=== PATIENT | male | born 1960 | race Caucasian/White ===

== ENCOUNTER 2018-01-23 00:34 | Inpatient (IN) | payer MEDICARE, MEDICAID ==
[2018-01-22 14:48] LABS: INR 0.96
--- NOTE | 2018-01-22 20:19 | HISTORY AND PHYSICAL ---
DATE OF ADMISSION: January 23, 2018 IDENTIFICATION/CHIEF COMPLAINT Fabby is a 56-year-old gentleman with the chief complaint of right shoulder pain. HISTORY OF PRESENT ILLNESS Patient has a long-standing history of right shoulder rotator cuff tear arthropathy, progressively painful and debilitating, refractory to conservative care. Surgery is indicated to relieve symptoms after failure of nonoperative measures. PAST MEDICAL HISTORY 1. History of diabetes. 2. Hypercholesterolemia. 3. History of DE. 4. Hypertension, controlled on medication. 5. Sleep apnea. ALLERGIES He has no known drug allergies. CURRENT MEDICATIONS 1. Humalog insulin sliding scale. 2. Metformin 1000 mg p.o. b.i.d. 3. Lactulose 10 mg per day. 4. Gabapentin 300 mg b.i.d. 5. Celebrex 200 mg p.o. q. day. 6. Aspirin baby size, 81 mg p.o. q. day. 7. Simvastatin 40 mg q. day. 8. Protonix 40 mg half tablet q. day. 9. Lisinopril 10 mg p.o. b.i.d. 10. Percocet as needed for pain. 11. Colchicine 0.6 mg p.o. q. day. 12. Furosemide 40 mg p.o. p.r.n. swelling. PAST SURGICAL HISTORY 1. Bilateral knee replacement. 2. Heart catheterization. 3. Knee scope. 4. Back surgery. 5. Cholecystectomy. FAMILY HISTORY Notable for mother with DE. Father with coronary artery disease. SOCIAL HISTORY Negative for tobacco and alcohol use. REVIEW OF SYSTEMS Negative. PHYSICAL EXAMINATION GENERAL: Healthy male. He is well developed. He is well nourished. He appears stated age. HEENT: Normocephalic, atraumatic. NECK: Supple. LUNGS: Clear. HEART: Regular. ABDOMEN: Soft. ORTHOPEDIC: Right shoulder is weak in forward elevation, abduction, and external rotation. He has crepitus throughout range of motion. He is stiff at end range. Gross stability is good. Neurovascular function intact. Skin is in good condition. ASSESSMENT Right shoulder rotator cuff tear arthropathy. PLAN I discussed the options with Fabby including ongoing conservative care management which is safe and reasonable but high likelihood of persistent symptoms versus the option of arthroplasty. Reverse total shoulder arthroplasty will be performed per patient request. Nature of the procedure, risks, benefits, and the anticipated rehab course were reviewed. Risks of the procedure include, but are not limited to , major medical or anesthetic complications, infection, neurovascular injury, blood transfusion, stiffness, scarring, fracture, tendon rupture, instability, implant loosening, migration, or failure, persisting or recurrent pain, need for additional surgery, and other unforeseen. He understands and wishes to proceed. The signed permit is placed in the chart. No guarantees are given or implied. AMIE
[~2018-01-23] VITALS: Ht 162.6 cm; Wt 123.8 kg
[2018-01-23] VITALS (13 sets, daily range): BP systolic 110–154; BP diastolic 53–79
[~2018-01-23 00:34] MED LIST: ALBU2.5V36 INH; ALBU2SYR19 IH; AMOX500T10 PO; ASPI-1471 PO; ASPI-757 PO; ASPI-870 PO; ASPI81TA94 PO; CELE-1 PO; COLC0.6T2 PO; DIA5 PO; FEN145 PO; FURO-47 PO; GABA-549 PO; HYDR-389 PO; HYDR-654 PO; INSU100V24 SQ; INSU300I SUBQ; LACT10SO82 PO; LACTULOSE PO; LEVI SUBQ; LISI-362 PO; METF-452 PO; ONDA4TAB9 PO; ONDA4TAB97 PO; ONDA8TAB97 PO; OXYC-374 PO; OXYC-823 PO; PANT40TA65 PO; PER PO; PIOG15TA14 PO; PIOG45TA22 PO; POTA20TA94 PO; SIMV-54 PO
[2018-01-23] MEDS ORDERED: FAMOTIDINE 20 MG TAB PO ONE (06:00)
[2018-01-23] MEDS ORDERED: CELECOXIB 200 MG CAP PO ONE (06:15)
[2018-01-23] MEDS ORDERED: ceFAZolin(*) 2GM/D5W 50ML 50 ML IVPB ONE (06:15)
[2018-01-23] MEDS ORDERED: ACETAMINOPHEN 500 MG TAB PO ONE (06:15)
[2018-01-23] MEDS ORDERED: PREGABALIN 150 MG CAPSULE PO ONE (06:15)
[2018-01-23] MEDS ORDERED: cloNIDine EPIDUR INJ 100MCG/ML 40 MCG, ROPIVACAINE 0.5% 20 ML VIAL 25 ML, EPINEPHrine H... INJ ONE (06:15)
[2018-01-23] MEDS ORDERED: TRANEXAMIC AC 1000 MG/10ML SDV 1,000 MG in DEXTROSE 5% 50 ML BAG 50 ML IV ONE (06:15)
[2018-01-23] MEDS ORDERED: MIDAZOLAM 2 MG/2 ML VIAL IVP PRN (06:15)
[2018-01-23] MEDS ORDERED: NORMOSOL R SOLN(*) 1000 ML BAG 1,000 ML IV PRN ×2 (06:15→11:00)
[2018-01-23] MEDS ORDERED: LIDOCAINE/SOD BICARB 8.4% SYR ID ONE (06:15)
[2018-01-23] MEDS ORDERED: ROCURONIUM BROM 10 MG/ML 10 ML ONE (06:26)
[2018-01-23] MEDS ORDERED: ONDANSETRON 4 MG/2 ML VIAL ONE ×2 (06:26→07:40)
[2018-01-23] MEDS ORDERED: METOCLOPRAMIDE 10 MG/2 ML SDV ONE ×2 (06:26→07:40)
[2018-01-23] MEDS ORDERED: LIDOCAINE MPF 1% 5 ML VIAL ONE (06:26)
[2018-01-23] MEDS ORDERED: PROPOFOL EMUL(*) 10MG/ML 20 ML 40 ML ONE (06:26)
[2018-01-23] MEDS ORDERED: DEXAMETHASONE SOD 4 MG/ML VIAL ONE ×2 (06:27→07:40)
[2018-01-23] MEDS ORDERED: ROPIVACAINE 0.5% 20 ML VIAL ONE (06:31)
[2018-01-23] MEDS ORDERED: fentaNYL CITR 100 MCG/2 ML AMP ONE ×3 (06:37→10:30)
[2018-01-23] MEDS ORDERED: VANCOMYCIN 1 GM VIAL ONE (07:05)
[2018-01-23] MEDS ORDERED: HYDROGEN PEROXID 3% 473 ML BTL TP ONE (07:06)
[2018-01-23] MEDS ORDERED: TRANEXAMIC AC 1000 MG/10ML SDV ONE (07:40)
[2018-01-23] MEDS ORDERED: PROPOFOL 10 MG/1 ML VIAL ONE (07:40)
[2018-01-23] MEDS ORDERED: ROCURONIUM BROM 10 MG/ML 5 ML ONE (07:40)
[2018-01-23] MEDS ORDERED: SUGAMMADEX SOD 500 MG/5 ML SDV ONE (08:51)
[2018-01-23] MEDS ORDERED: PROMETHAZINE 25 MG/ML 1 ML AMP IVP PRN (11:00)
[2018-01-23] MEDS ORDERED: ACETAMINOPHEN 325 MG TAB PO PRN (11:00)
[2018-01-23] MEDS ORDERED: BISACODYL 10 MG SUPP PR PRN (11:00)
[2018-01-23] MEDS ORDERED: diphenhydrAMINE 50 MG/ML VIAL IVP PRN (11:00)
[2018-01-23] MEDS ORDERED: diphenhydrAMINE 25 MG CAP PO PRN (11:00)
[2018-01-23] MEDS ORDERED: BENZOCAINE/MENTHOL 1 EACH LOZG PO PRN (11:00)
[2018-01-23] MEDS ORDERED: ZOLPIDEM TARTRATE 5 MG TAB PO PRN (11:00)
[2018-01-23] MEDS ORDERED: MAGNESIUM HYDROXIDE* 30ML UDCP PO PRN (11:00)
[2018-01-23] MEDS ORDERED: FLUSH 10 ML SYR IVP PRN (11:00)
[2018-01-23] MEDS ORDERED: oxyCODONE HCL 5 MG CAP PO PRN ×2 (11:05)
[2018-01-23] MEDS: oxyCODONE HCL 5 MG CAP PO PRN ×3 (12:50→20:22)
[2018-01-23] MEDS: ONDANSETRON 4 MG/2 ML VIAL IVP PRN ×2 (12:58→20:20)
--- NOTE | 2018-01-23 13:17 | RADIOLOGY IMAGING REPORT ---
FACILITY: [facility] - [place] PATIENT NAME: Fabby Ortiz : 1960 MR: [id number] V: [id number] EXAM DATE: ORDERING PHYSICIAN: JERAMY BLAS TECHNOLOGIST: Location: [facility] [place] Patient: Fabby Ortiz : 1960 Visit/Account:[id number] Date of Sevice: 01/23/2018 SHOULDER 1 VIEW RIGHT Indication: Postop Comparison: Unavailable Findings: There are postsurgical changes from two-part right TSA. Components appear well seated and appropriat jassi aligned. IMPRESSION: 1. Unremarkable postoperative TSA Report Dictated By: Mika Lou at 01/23/2018 1:12 PM Report E-Signed By: Mika Lou at 01/23/2018 1:12 PM WSN:[email or web address]
[2018-01-23 13:54] LABS: PLATELET COUNT, AUTOMATED 295 K/uL (150-450)
[2018-01-23] MEDS ORDERED: INSULIN HUM LISPRO 100 UN/ML 3 ML VIAL SUBQ PRN (14:25)
--- NOTE | 2018-01-23 15:13 | Hospitalist Consultation ---
History of Present Illness Requesting Physician Dr. Alvarado Reason for Consult Medical Management Chief Complaint s/p right shoulder replacement History of Present Illness He was admitted s/p right shoulder replacement. It is reported the surgery went well and without complication. When patient was admitted to the floor, he came with complaints of his pancreas hurting. He reports a long standing history of chronic pancreatitis. He does have nausea also. History Problems: (1) GAVI on CPAP Status: Chronic (2) GAVI treated with BiPAP Status: Chronic (3) CAD (coronary artery disease) Status: Chronic (4) DMII (diabetes mellitus, type 2) Status: Chronic (5) GERD (gastroesophageal reflux disease) Status: Chronic (6) Hyperlipidemia Status: Chronic (7) Hx of chronic pancreatitis Status: Chronic Home Meds Active Scripts Albuterol Sulfate 0.083% (ALBUTEROL SULFATE 0.083%) 2.5 Mg/3 Ml Vial.neb, 2.5 MG INH Q6H PRN for DYSPNEA, #1 BOX Prov:MIKKI CHAVIRA MD 01/26/16 Insulin Lispro 100 Un/Ml Vial (HUMALOG 100 U/ML VIAL) 100 Unit/1 Ml Vial, 1-6 UNITS SQ ACHS, #1 VIAL Per sliding scale. Prov:MIKKI CHAVIRA MD 01/26/16 Reported Medications Pioglitazone Hcl (ACTOS) 15 Mg Tablet, 15 MG PO BID 01/16/18 Insulin Glargine,Hum.rec.anlog (Rebecca Torres) 300 Unit/1 Ml Insuln.pen, 37 SUBQ BID 01/16/18 Potassium Chloride (POTASSIUM CHLORIDE) 20 Meq Tab.er.prt, 20 MEQ PO QDAY PRN for SWELLING TAKE WITH FUROSEMIDE 01/16/18 Ondansetron (ONDANSETRON ODT) 4 Mg Tab.rapdis, 4 MG PO BID PRN for NAUSEA 01/16/18 Furosemide (FUROSEMIDE) 40 Mg Tablet, 1 TAB PO Q8H PRN for SWELLING, TAB 01/16/18 Aspirin (ASPIRIN) 81 Mg Tab.chew, 81 MG PO QDAY, TAB.CHEW 01/16/18 Lactulose (LACTULOSE) 10 Gm/15 Ml Solution, 10 GM PO DAILY PRN for CONSTIPATION 01/16/18 Oxycodone/Acetaminophen (OXYCODONE/ACETAMINOPHEN 5MG/325 MG) 5 Mg/325 Mg Tab, 7.5-325 MG PO Q4H PRN for PAIN PRN PAIN CONTRACT 01/16/18 Amoxicillin 500 Mg Tab (AMOXICILLIN 500 MG TAB) 500 Mg Tablet, 1 TAB PO DIRECTED, TAB 1-2 HOURS PRIOR TO DENTIST 01/16/18 Lisinopril (LISINOPRIL) 10 Mg Tablet, 10 MG PO BID, TAB 01/16/18 Celecoxib (CELEBREX) 200 Mg Capsule, 200 MG PO BID, #60 CAPSULE 01/29/16 Metformin Hcl (METFORMIN HCL) 1,000 Mg Tablet, 1 TAB PO BID, TAB 01/21/15 Pantoprazole Sodium (PANTOPRAZOLE SODIUM) 40 Mg Tablet.dr, 20 MG PO QDAY, TAB.SR 01/21/15 Colchicine (COLCRYS) 0.6 Mg Tablet, 0.6 MG PO PRN PRN for SEE COMMENT 01/21/15 Simvastatin (SIMVASTATIN) 40 Mg Tablet, 40 MG PO HS, TAB 01/21/15 Gabapentin (GABAPENTIN) 300 Mg Capsule, 300 MG PO BID, CAPSULE 01/21/15 Discontinued Reported Medications [Lactulose] No Conflict Check, 10-15 MG PO DAILY 01/16/18 Hydrocodone Bit/Acetaminophen (NORCO 7.5-325 TABLET) 1 Each Tablet, 1-2 EACH PO Q4-6H, #100 01/29/16 Diazepam (VALIUM) 5 Mg Tablet, 5 MG PO Q6H for PAIN, #30 TAB 01/29/16 Pioglitazone Hcl (ACTOS) 45 Mg Tablet, 45 MG PO QDAY 1/2 TAB QD 01/19/16 Discontinued Scripts Aspirin (ASPIRIN) 325 Mg Tablet, 325 MG PO QDAY, #30 TAB 0 Refills Prov:WENDY CHAVIRA MD 01/29/16 Insulin Detemir (LEVEMIR) 100 Unit/Ml Injs, 25 UNIT SUBQ Q12H, #1 VIAL Prov:MIKKI CHAVIRA MD 01/26/16 Fenofibrate,Micronized (TRICOR) 145 Mg Tab, 145 MG PO DAILY, #30 TAB Prov:MIKKI CHAVIRA MD 01/26/16 Allergies: Coded Allergies: No Known Drug Allergies (Unverified , 01/21/15) Patient History: FH: heart attack FATHER, MOTHER, FH: stroke MOTHER, FHx: diabetes mellitus FATHER, Hx Smoking: No Smoking Status: Never Smoker Exposure to Second Hand Smoke?: No Caffeine Intake: Coffee, Tea, Soda Caffeine/Cups Per Day: 4 CPD Hx Alcohol Use: No Hx Substance Use Disorder: No Social Drug Use: Never History of IV Drug Use: No Review of Systems All Systems Reviewed/Normal: Yes, Except as Noted Exam Vital Signs Vital Signs Date Time Temp Pulse Resp B/P (MAP) Pulse Ox O2 Delivery O2 Flow Rate FiO2 01/23/18 13:30 95 Nasal Cannula 2.0 01/23/18 11:39 98.1 86 16 154/76 (102) General Appearance: Alert, Awake, No Acute Distress, Afebrile Neuro: No Gross deficits Cardiovascular: Regular Rate and Rhythm Respiratory: No Respiratory Distress, Clear to Auscultation GI: Other (tender to left upper quadrant) Extremities: No Warm, No Perfused; Edema (non pitting edema noted bilaterally to ankles) Psych: Alert & Oriented X3, Appropriate Mood & Affect Medical Decision Making Data Points Result Diagram: 01/23/18 1345 01/23/18 1345 Assessment and Plan Problems: (1) Status post replacement of right shoulder joint Status: Acute Assessment & Plan: Followed by Dr. Alvarado. (2) Hypertension Status: Chronic Assessment & Plan: He is on chronic treatment with Lisinopril and Lasix. These have been restarted with hold parameters. (3) Hx of chronic pancreatitis Status: Chronic Assessment & Plan: He presented with abdominal pain and nausea, which the patient felt was a possible exacerbation of chronic pancreatitis. Amylase and Lipase performed and are within normal limits at this time. Patient states he will take it slow with his diet, as he has this pain often. We will continue to monitor for pancreatitis. (4) DMII (diabetes mellitus, type 2) Status: Chronic Assessment & Plan: He is on chronic treatment with Metformin, Actos and Insulin. He will be placed on SS insulin #2, until the patient is eating better. See above. (5) GERD (gastroesophageal reflux disease) Status: Chronic Assessment & Plan: He is on chronic treatment with Protonix. (6) Hyperlipidemia Status: Chronic Assessment & Plan: He is on chronic treatment with Simvastatin. (7) GAVI treated with BiPAP Status: Chronic Assessment & Plan: He brought his own BiPap to use during admission. (8) Chronic back pain Status: Chronic Assessment & Plan: He does take Percocet, Gabapentin and Celebrex for pain. Gabapentin has been restarted. Pain control by Dr. Alvarado. Venous Thromboembolism Antithrombotics Is Pt On Any Antithrombotics?: No ABRAHAM JAMISON MATH TEACHER Jan 23, 2018 15:13
[2018-01-23] MEDS: IBUPROFEN 800 MG TAB PO SCH (17:13)
--- NOTE | 2018-01-23 17:16 | OPERATIVE REPORT 1 ---
EVENT DATE: January 23, 2018 SURGEON: Tremaine Alvarado MD ANESTHESIOLOGIST: ANESTHESIA: General plus Scalene DIGITAL MARKETING ASSOCIATE: MARIANNA Pennington PREOPERATIVE DIAGNOSIS Right shoulder rotator cuff tear arthropathy and long head biceps disease. POSTOPERATIVE DIAGNOSIS Right shoulder rotator cuff tear arthropathy and long head biceps disease. PROCEDURE PERFORMED Right shoulder reverse total shoulder arthroplasty and open tenodesis of the long head of the biceps. ESTIMATED BLOOD LOSS 400 cc. DRAINS None. SPECIMENS None. COMPLICATIONS None apparent. IMPLANTS USED Agennix system with a Reunion, glenoid baseplate 28 mm, a 36 mm concentric plus 2 lateral offset glenosphere, a size 12 modular humeral stem, with a 36 diameter, 4mm thickness humeral insert and a 36 mm, 4 mm thickness humeral cup in addition to three 4.5 peripheral locking screws and a central 6.5 x 28 mm center screw. INDICATIONS Fabby is a 57-year-old gentleman with intractable pain and disability related to endstage rotator cuff tear arthropathy. Surgery is indicated to relieve symptoms after failure of nonoperative measures. DESCRIPTION OF PROCEDURE Patient was taken to the operating room and placed supine on the operating table. Scalene block was administered by the anesthesiologist. General anesthesia was induced. He was positioned in the modified beach chair position. All bony prominences and superficial nerves were well padded. The right shoulder girdle and upper extremity were prepped and draped in the usual sterile fashion for shoulder arthroplasty. A curvilinear incision is made over the deltopectoral interval and carried down through the skin and subcutaneous tissue. The cephalic vein is identified and taken laterally with the deltoid and the deltopectoral interval is developed bluntly. The clavipectoral fascia is released along the lateral aspect of the conjoined tendon, and a deep blunt retractor is placed beneath the conjoined tendon. Gloved finger is swept beneath the subscapularis and the axillary neurovascular bundle is identified and protected with a blunt Hohmann. The subscapularis is partially torn, scarred and attenuated. This is released and tagged for potential later reattachment. The subscapularis is peeled off after tenodesing the biceps anatomically to the cuff of the upper portion of the pectoralis major tendon with #2 Ethibond suture. The biceps proximal to this is resected up into the joint. After completing subscapularis release, the humerus progressively extended and externally rotated and endstage arthritic change is noted as well as the deficiency of the posterior superior cuff. Appropriate Tere retractors were placed to protect the glenoid and a 135-degree neck angle cut is made at the [place] anteversion and 30 degrees of retroversion. Humeral head is extracted. Humerus is translocated posteriorly and held with a posterior rectractor with the tip on the back of the glenoid. The subscapularis is released but is markedly attenuated and scarred. It is clear that this will probably not be repairable. Nevertheless, it is required for exposure of the anterior glenoid. The anterior glenoid neck rectractor is then placed and the capsule is resected and released while protecting the axillary neurovascular bundle. On fossa exposure, the glenoid face is achieved. The appropriate guide is used to introduce the center pin and this is drilled towards the neutral position with the baseplate designed to be at the inferior surface of the glenoid without overhang. The 36 mm reamer is introduced, the hemispherical reamer and reaming is performed until a nice concentric back is achieved. No additional medialization is performed. The guide pin is then removed and the center hole measured. The Metaglene is applied and secured with the center screw rigidly. Superior and then inferior locking screws were placed, anterior locking screw was placed, posterior locking screw was not able to be placed due to a very tight shoulder and limited bone stock back in this area, but solid fixation of the metaglene is achieved. Surface is copiously lavaged and a 36 plus 2 glenosphere is impacted onto the metaglene and seats nicely. Attention is turned to the humeral preparation. An awl is used to enter the superior lateral spot posterior to the biceps groove, in line with the canal. Tapered reaming is performed up to 12 where nice endosteal contact is obtained. Broaching starts with 10 and works up to 12 following about 30 degrees of retroversion. The trial reduction is performed off the broach and good religion of soft tissue tension and stability are achievable with the +4 cup and insert. Soft tissue tension is assessed as well as the ability to bring the end of the back of the head towards contralateral shoulder and externally rotated satisfactorily without gapping. This is felt to be ideal and a larger, thicker insert is not feasible, so the broach and trial components were removed. The actual implants assembled in terms of the humerus on the back table and this was impacted into position and seats at a nice height. This is reduced. The wound is copiously lavaged. The subscapularis is not repairable and therefore tagged sutures are removed. The wound is copiously lavaged, meticulous hemostasis is assured. Vancomycin powder is placed in the wound. Deltopectoral interval is allowed to fold back together. Dermis closed with 3-0 Vicryl, the skin with surgical ritika. Xeroform is applied, 4x4 dry, sterile dressing and an Ultra-Sling. PLAN Aggressive reverse total shoulder arthroplasty protocol with early active range of motion. Strengthening to be deferred until a 10 weeks postop, unrestricted use at 4 months. MTDD
[2018-01-23] MEDS: ceFAZolin(*) 1 GM VIAL 1 GM in NS(*) 0.9% 100 ML ADDVANT BAG 100 ML IVPB SCH (17:25)
[2018-01-23] MEDS: LISINOPRIL 10 MG TAB PO SCH (20:21)
[2018-01-23] MEDS: GABAPENTIN 300 MG CAP PO SCH (20:21)
[2018-01-23] MEDS: DIAZEPAM 5 MG TAB PO PRN (20:21)
[2018-01-23] MEDS ORDERED: SIMVASTATIN 40 MG TAB PO SCH (21:00)
[2018-01-24] MEDS: ceFAZolin(*) 1 GM VIAL 1 GM in NS(*) 0.9% 100 ML ADDVANT BAG 100 ML IVPB SCH ×2 (00:39→09:25)
[2018-01-24] MEDS: ONDANSETRON 4 MG/2 ML VIAL IVP PRN ×2 (00:40→06:17)
[2018-01-24] MEDS: oxyCODONE HCL 5 MG CAP PO PRN (00:43)
[2018-01-24] MEDS: IBUPROFEN 800 MG TAB PO SCH ×2 (01:00→08:23)
[2018-01-24] MEDS: DIAZEPAM 5 MG TAB PO PRN ×2 (02:19→08:23)
[2018-01-24 03:48] VITALS: BP 129/58
[2018-01-24 05:12] VITALS: BP 128/63
[2018-01-24 06:09] LABS: PLATELET COUNT, AUTOMATED 293 K/uL (150-450)
[2018-01-24 07:30] VITALS: BP 128/63
[2018-01-24] MEDS ORDERED: OXYC-869 PO (08:05)
[2018-01-24] MEDS ORDERED: DIA5 PO (08:06)
[2018-01-24] MEDS ORDERED: ASPIRIN 81 MG CHEW PO ONE (09:00)
[2018-01-24] MEDS ORDERED: ASPIRIN 325 MG TAB PO SCH (09:00)
[2018-01-24] MEDS ORDERED: PANTOPRAZOLE SOD 20 MG TABEC PO SCH (09:00)
[2018-01-24] MEDS ORDERED: FUROSEMIDE 40 MG TAB PO SCH (09:00)
[2018-01-24] MEDS: GABAPENTIN 300 MG CAP PO SCH (09:26)
[2018-01-24] MEDS: LISINOPRIL 10 MG TAB PO SCH (09:26)
[2018-01-24 09:27] VITALS: BP 142/54
--- NOTE | 2018-01-24 11:30 | Hospitalist Progress Note ---
Subjective Progress Notes Subjective He has no complaints this morning. He had no acute events overnight. Patient Complains of: Cardiovascular: No: Chest Pain Respiratory: No: Shortness of Breath Physical Exam Vital Signs Date Time Temp Pulse Resp B/P (MAP) Pulse Ox O2 Delivery O2 Flow Rate FiO2 01/24/18 09:27 142/54 (83) 01/24/18 07:57 94 Room Air 01/24/18 07:30 98.5 73 18 0.5 Intake and Output 01/24/18 00:00 Intake Total 2354 ml Output Total 100 ml Balance 2254 ml Intake Oral 200 ml IV Total 2154 ml Output Urine Total 100 ml # Voids 3 General Appearance: Alert, Awake, No Acute Distress, Afebrile Neuro: No Gross deficits Cardiovascular: Regular Rate and Rhythm Respiratory: No Respiratory Distress, Clear to Auscultation GI: Soft and Non-Tender Psych: Alert & Oriented X3, Appropriate Mood & Affect Result Diagram: 01/24/18 0536 01/23/18 7205 Assessment and Plan Problems: (1) Status post replacement of right shoulder joint Status: Acute Assessment & Plan: Followed by Dr. Alvarado. (2) Hypertension Status: Chronic Assessment & Plan: He is on chronic treatment with Lisinopril and Lasix. These have been restarted with hold parameters. (3) Hx of chronic pancreatitis Status: Chronic Assessment & Plan: He presented with abdominal pain and nausea post- operatively, which the patient felt was a possible exacerbation of chronic pancreatitis. Amylase and Lipase performed and are within normal limits. Patient states he will take it slow with his diet, as he has this pain often. This morning, he has his "usual" amount of pain. (4) DMII (diabetes mellitus, type 2) Status: Chronic Assessment & Plan: He is on chronic treatment with Metformin, Actos and Insulin. He was on SS insulin #2, until the patient was eating better. (5) GERD (gastroesophageal reflux disease) Status: Chronic Assessment & Plan: He is on chronic treatment with Protonix. (6) Hyperlipidemia Status: Chronic Assessment & Plan: He is on chronic treatment with Simvastatin. (7) GAVI treated with BiPAP Status: Chronic Assessment & Plan: He brought his own BiPap to use during admission. (8) Chronic back pain Status: Chronic Assessment & Plan: He does take Percocet, Gabapentin and Celebrex for pain. Gabapentin has been restarted. Pain control by Dr. Alvarado. Exam Sepsis Risk: No Definite Risk ABRAHAM JAMISON CLINICAL RESEARCH ASSOCIATE Jan 24, 2018 11:29
[2018-01-24 11:38] VITALS: BP 130/72
[2018-01-24 12:00] VITALS: Ht 162.6 cm; Wt 123.8 kg
== END 2018-01-24 12:02 | disposition home or self-care (01) | DRG 483 ==
LOC: OR 00:34 → MED 11:37
PROVIDERS: ADMIT Orthopaedic Surgery; ATTEND Orthopaedic Surgery
PROC: 0RRJ00Z Replacement of Right Shoulder Joint with Reverse Ball and Socket Synthetic Substitute, Open Approach (ICD-10-PCS; principal; 2018-01-23 07:14)
DX: M19.011 Primary osteoarthritis, right shoulder (principal); G47.33 Obstructive sleep apnea (adult) (pediatric); I10 Essential (primary) hypertension; I25.10 Atherosclerotic heart disease of native coronary artery without angina pectoris; E78.00 Pure hypercholesterolemia, unspecified; M75.101 Unspecified rotator cuff tear or rupture of right shoulder, not specified as traumatic; K21.9 Gastro-esophageal reflux disease without esophagitis; E78.5 Hyperlipidemia, unspecified; G89.29 Other chronic pain; E11.40 Type 2 diabetes mellitus with diabetic neuropathy, unspecified; I25.2 Old myocardial infarction; Z68.42 Body mass index [BMI] 45.0-49.9, adult; E66.01 Morbid (severe) obesity due to excess calories; Z79.4 Long term (current) use of insulin; Z90.49 Acquired absence of other specified parts of digestive tract; Z96.653 Presence of artificial knee joint, bilateral; Z99.81 Dependence on supplemental oxygen
CPT/HCPCS: 36415; 36416; 82040; 82150; 82247; 82310; 82374; 82435; 82565; 82947; 82948; 83690; 84075; 84132; 84155; 84295; 84450; 84460; 84520; 85025; 85610; 86850; 86900; 86901; 97165; J0171; J0690; J0735; J1100; J1885; J2001; J2250; J2405; J2704; J2765; J2795; J3010; J3370; J3490; J7050; J7060